=== PATIENT | male | born 1995 | race Two or more races ===

== ENCOUNTER 2024-10-14 12:45 | Emergency (ER) | payer BC ==
[~2024-10-14] VITALS: Ht 170.2 cm; Wt 94.0 kg
[2024-10-14 12:50] VITALS: O2SAT 99
[2024-10-14] MEDS: SODIUM CHLORIDE 0.9% 1,000 ML IV ONE (14:33)
[2024-10-14] MEDS: KETOROLAC 30MG/ML VIAL IV STA (14:33)
[2024-10-14] MEDS: ONDANSETRON HCL 4MG/2ML INJ IV ONE (14:34)
[2024-10-14 14:48] LABS: HEMATOCRIT. 46.3 % (42.0-52.0); HEMOGLOBIN. 15.3 g/dL (14.0-18.0); MEAN CORPUSCULAR HEMOGLOBIN 29.4 pg (28.0-32.0); MEAN CORPUSCULAR VOLUME 89.2 fL (80.0-94.0); MEAN PLATELET VOLUME 10.2 fl (7.4-10.4); PLATELET 205 x1000/uL (130-400); RED BLOOD CELL COUNT 5.19 mill/uL (4.7-6.1); RED CELL DISTRIBUTION WIDTH 14.6 % (11.6-14.6); WHITE BLOOD COUNT 9.5 x1000/uL (4.5-11.0)
[2024-10-14 14:55] LABS: DIFFERENTIAL COMMENT 1
[2024-10-14 15:01] LABS: CHLORIDE 107 mEq/L (98-107); SODIUM 138 mEq/L (136-145)
[2024-10-14 15:02] LABS: CALCIUM 9.2 mg/dL (8.7-10.4); CARBON DIOXIDE 26 mEq/L (21-32)
[2024-10-14 15:07] LABS: CREATININE 0.8 mg/dL (0.6-1.3); GLUCOSE 95 mg/dL (70-105); UREA NITROGEN BLOOD 13 mg/dL (9-23)
[2024-10-14 15:16] LABS: ETHANOL BLOOD < 10 mg/dL (<10)
[2024-10-14] MEDS: CHLORDIAZEPOXIDE 25MG CAPSULE PO ONE (15:51)
[2024-10-14 17:02] VITALS: BP 134/76; PULSE 101; RESP 16; TEMP 36.89184; O2SAT 99
[2024-10-14 18:04] LABS: PLATELET ESTIMATE NORMAL
== END 2024-10-14 17:04 | disposition home or self-care (01) ==
LOC: ER 12:45
DX: F10.20 Alcohol dependence, uncomplicated (principal); E11.9 Type 2 diabetes mellitus without complications; Y90.0 Blood alcohol level of less than 20 mg/100 ml
CPT/HCPCS: 80048; 80320; 85025; 36415; 96361; 96374; 96375; 99284; J1885; J2405; J7030; Z7610; G0480